=== PATIENT | female | born 1960 | race Caucasian/White ===

== ENCOUNTER 2016-10-13 22:35 | Emergency (ER) | payer SELFPAY ==
[~2016-10-13] VITALS: Ht 165.1 cm; Wt 83.0 kg
[~2016-10-13 22:35] MED LIST: TAMIFLU PO; motrin
--- NOTE | 2016-10-13 22:58 | NUR ---
Dr. Knight at bedside for eval.
[2016-10-13 23:14] VITALS: BP 147/80
--- NOTE | 2016-10-13 23:14 | NUR ---
Patient discharged to home in stable conditon. Written and verbal after care instructions given. Patient verbalizes understanding of instructions.
[2016-10-13] MEDS ORDERED: PHENAZOPYRIDINE HCL 100 MG TABLET PO ONE (23:15)
[2016-10-13] MEDS ORDERED: SULFAMETH/TRIMETH 800/160 MG TABLET PO ONE (23:15)
[2016-10-13] MEDS ORDERED: PHENAZOPYRIDINE HCL 100 MG TABLET ONE (23:21)
[2016-10-13] MEDS ORDERED: SULFAMETH/TRIMETH 800/160 MG TABLET ONE (23:21)
== END 2016-10-13 23:15 | disposition home or self-care (01) ==
LOC: ER 22:36
DX: N39.0 Urinary tract infection, site not specified (principal); K74.60 Unspecified cirrhosis of liver; Z85.820 Personal history of malignant melanoma of skin; Z88.1 Allergy status to other antibiotic agents; R30.0 Dysuria
CPT/HCPCS: 99283; A4663